=== PATIENT | male | born 1950 ===

== ENCOUNTER 2021-11-21 09:24 | Day surgery (SDC) | payer MEDICARE ==
[2021-11-21] VITALS (11 sets, daily range): BP systolic 102–167; BP diastolic 68–88; PULSE 61–87; TEMP 96.5–98.2
[~2021-11-21] VITALS: Wt 110.5 kg
[2021-11-21] MEDS ORDERED: PRINIVIL10 MG PO (10:35)
[2021-11-21] MEDS ORDERED: NORVASC 10MG10 MG PO (10:35)
[2021-11-21] MEDS ORDERED: PYRIDIUM 100MG100 MG PO (12:06)
--- NOTE | 2021-11-21 15:07 | NUR ---
PT ARRIVED TO ROOM 330 AT 1500. VSS, RATING PAIN 3/10. DENIES NAUSEA. CBI RUNNING WITH CLEAR, LIGHT PINK OUTPUT IN BECKMAN CATHETER. PT DENIES FURTHER NEEDS WITH CALL LIGHT IN REACH.
--- NOTE | 2021-11-21 20:45 | NUR ---
Pt. sitting up in bed. Pt. is a&OX3, assessment complete. INT to lt. ac patent. Pt. denies pain. Duran catheter to DD with CBI running slow, urine is light pink at this time. Pt. denies further needs.
[2021-11-22 03:39] VITALS: BP 126/81; PULSE 66; TEMP 97.6
[2021-11-22 07:30] VITALS: BP 134/71; PULSE 71; TEMP 97.6
--- NOTE | 2021-11-22 07:30 | NUR ---
pt assessment completed. pt rossi intact w/o kinks draining light pink urine. CBI currently not infusing. pt tolerated breakfast well. no complaints of nausea. pt states no real current pain, just tender and sometimes a "shock feeling" and that he wants to urinate on his own. pt stated he jus wants to lay and bed as he tried to get up this morning and didn't tolerate well. pt is in good spirits resting in bed w/ call light in reach.
--- NOTE | 2021-11-22 09:30 | NUR ---
d/c pt rossi. drained bag that contained 600mL of light pink urine. filled bladder w/ NS solution until pt felt urge and uncomfortable. deflated balloon and removed 30mL. removed rossi w/ tip in tact. provided ida care. pt tolerated removel well. educated pt on drinking fluids to obtain 6 specimen cups to monitor color of urine. pt in bed resting w/ call light in reach
--- NOTE | 2021-11-22 09:50 | NUR ---
pt has had a intake of 4800mL of water. has urinated twice and provided urine specimen that are a duarte red and contain clots. No complaints of pain. states he has a urge to urinate w/ some feeling of a clot blocking his stream. Pt is well resting in bed with call light in reach.
--- NOTE | 2021-11-22 10:58 | NUR ---
First visit from the summer sessions director. No needs right now.
[2021-11-22 11:50] VITALS: BP 126/68; PULSE 75; TEMP 97.8
--- NOTE | 2021-11-22 15:22 | NUR ---
DISCHARGE INSTRUCTIONS REVIEWED WITH PT. PT LEFT UNIT AMBULATORY.
--- NOTE | 2021-11-22 15:23 | NUR ---
AGREE WITH STUDENTS ASSESSMENTS CHARTED.
== END 2021-11-22 15:23 | disposition home or self-care (01) ==
LOC: SDCO 09:24 → SURG 15:01 → SDCO 11-22 15:23
DX: N40.1 Benign prostatic hyperplasia with lower urinary tract symptoms (principal); R35.1 Nocturia; R39.12 Poor urinary stream; R39.14 Feeling of incomplete bladder emptying; F17.210 Nicotine dependence, cigarettes, uncomplicated; Z98.890 Other specified postprocedural states
CPT/HCPCS: OP; J0690; J1100; J2250; J2270; J2405; J2704; J3010; J3480; J7120

== ENCOUNTER → 2023-12-31 | Outpatient (CLI) | payer MEDICARE, MEDICAID ==
[~2023-12-31] VITALS: Ht 185.4 cm; Wt 94.3 kg
[~2023-12-31] MED LIST: NORCO 325 MG-51 TAB PO; NORVASC 10MG10 MG PO; PRINIVIL10 MG PO; PYRIDIUM 100MG100 MG PO
[2023-12-31 08:10] VITALS: BP 120/66; PULSE 77; TEMP 99.3
[2023-12-31 08:55] VITALS: BP 93/65; PULSE 74
== END ==
LOC: COL.RAD 07:30
DX: R93.5 Abnormal findings on diagnostic imaging of other abdominal regions, including retroperitoneum (principal)
CPT/HCPCS: 32108

== ENCOUNTER 2024-01-23 09:43 | Observation (INO) | payer MEDICARE, MEDICAID ==
[~2024-01-23] VITALS: Ht 188 cm; Wt 94.1 kg
[~2024-01-23 09:43] MED LIST changes: +FLEXERIL 1010 MG/TAB PO; +ZYLOPRIM 300MG300 MG PO
[2024-01-23] MEDS ORDERED: Ondansetron 4 MG/2 ML VIAL IV ONE (10:15)
[2024-01-23] MEDS ORDERED: HYDROmorphone 0.5 MG/0.5 ML SYRINGE IV ONE ×2 (10:15→12:30)
[2024-01-23] MEDS ORDERED: NS 1,000 ML IV ONE (10:15)
[2024-01-23 10:24] LABS: BASO % 0.3 % (0.0-2.0); EOS # 0.2 K/mm3 (0.0-0.7); EOS % 1.9 % (0.0-4.0); GRAN # 9.4 K/mm3 (1.4-6.5); GRAN % 79.5 % (42.2-75.2); HEMATOCRIT 37.9 % (42.0-52.0); HEMOGLOBIN 12.4 g/dl (13.5-18.0); LYMPH # 1.1 K/mm3 (1.2-3.4); LYMPH % 9.4 % (20.0-51.0); MEAN CELL VOLUME 88 fl (80.0-100.0); MEAN CORPUSCULAR HEMOGLOBIN 29 pg (27-31); MEAN CORPUSCULAR HGB CONC 33 g/dl (33.0-37.0); MEAN PLATELET VOLUME 9.4 fl (7.4-10.4); MONO % 8.2 % (1.7-9.3); PLATELET COUNT 218 K/mm3 (130-400); RED BLOOD COUNT 4.32 M/mm3 (4.20-5.60); REDCELL DISTRIBUTION WIDTH-CV 14.6 % (11.5-14.5)
[2024-01-23 10:59] LABS: ALBUMIN 2.8 g/dL (3.4-4.8); C-REACTIVE PROTEIN 12.82 mg/dL (0.00-0.50); CALCIUM 9.4 mg/dL (8.4-10.2); CREATININE, serum 0.92 mg/dL (0.72-1.25); POTASSIUM 3.8 mEq/L (3.5-4.5); TOTAL PROTEIN 6.7 g/dl (6.2-8.1)
[2024-01-23] MEDS ORDERED: Iohexol 300 - 100 ML VIAL IV ONE (11:32)
[2024-01-23] MEDS ORDERED: NS 100 ML IV SCH (11:33)
[2024-01-23] MEDS ORDERED: ROXICODONE 55 MG/TAB PO (12:39)
--- NOTE | 2024-01-23 13:25 | NUR ---
Pt arrived to surgical floor from ED. Report received from JERSON Sawyer. Admission assessment and intake completed. Pt is A&O x4. Orieneted pt to room, call light, and bathroom. INT to Rt wrist patent with no swelling, redness, or drainage. Home medications reviewed. Pt reports pain in his lower back that radiates to the front of his abdomen. Pt ambulates independently with no complications. During admission intake this nurse received a phone call from telemetry monitoring from [facility] stating that patient telemetry was showing afib. This nurse assessed pt and pt was asymptomatic of afib. This nurse then notified Dr. Benson by phone and obtained orders for EKG and cardiology consult. This nurse consulted cardiology and notified respiratory for EKG order. EKG obtained and cardiology Angeli ARTHUR called this nurse and notified this nurse that patient was in normal sinus rhythm with PAC. Pt is currently resting in bed with no complaints. PRN Tylenol adminsitered per emar for back pain and NS infusing into Rt wrist with no complications. Call light within reach.
[2024-01-23] MEDS ORDERED: Acetaminophen 325 MG TAB PO PRN ×2 (13:45→17:30)
[2024-01-23] MEDS ORDERED: *Potassium Replacement Protocol MC SCH (13:45)
[2024-01-23] MEDS ORDERED: Ondansetron 4 MG/2 ML VIAL IV PRN ×2 (13:45→17:30)
[2024-01-23 14:00] VITALS: BP 118/63; PULSE 61; TEMP 98.2
[2024-01-23] MEDS ORDERED: NS 1,000 ML IV SCH (14:00)
[2024-01-23 16:59] VITALS: BP_SYST 118
[2024-01-23] MEDS ORDERED: Allopurinol 300 MG TAB PO SCH (17:06)
[2024-01-23] MEDS ORDERED: Lisinopril 10 MG TAB PO SCH (17:06)
[2024-01-23] MEDS ORDERED: oxyCODONE 5 MG TAB PO PRN (17:15)
[2024-01-23] MEDS ORDERED: Cyclobenzaprine 10 MG TAB PO PRN (17:15)
[2024-01-23 20:01] VITALS: BP 128/65; PULSE 62; TEMP 98
[2024-01-23 21:00] VITALS: BP_SYST 128
[2024-01-23 23:57] VITALS: BP 105/63; PULSE 58; TEMP 98.1
[2024-01-24] VITALS (8 sets, daily range): BP systolic 105–113; BP diastolic 60–64; PULSE 60–69; TEMP 98.1–98.4
--- NOTE | 2024-01-24 02:46 | NUR ---
NURSING SHIFT ASSESSMENT COMPLETED. THE PATIENT IS ALERT AND ORIENTED AND AMBULATES WITH A STEADY GAIT. PAIN MEDICATIONS REVIEWED. THE PATIENT IS REPORTING ABD PAIN THAT RADIATES TO HIS BACK AND IS MUCH WORSE WITH MOVEMENTS. THE PATIENT WAS ENCOURAGED TO TAKE THE PAIN MEDICATION MORE OFTEN RATHER THAN PUTTING IT OFF UNTIL THE PAIN BECOMES INBEARABLE. THE PATIENT VERBALIZED UNDERSTANDING. THE PATIENT DENIED OTHER NEEDS AT THIS TIME. CALL LIGHT AND PERSONAL BELONGINGS WITHIN REACH. THE BED IS IN THE LOW POSITION.
[2024-01-24 07:47] LABS: BASO % 0.3 % (0.0-2.0); EOS # 0.5 K/mm3 (0.0-0.7); EOS % 4.9 % (0.0-4.0); GRAN # 6.8 K/mm3 (1.4-6.5); GRAN % 71.4 % (42.2-75.2); LYMPH # 1.3 K/mm3 (1.2-3.4); MEAN CELL VOLUME 90 fl (80.0-100.0); MEAN CORPUSCULAR HGB CONC 32 g/dl (33.0-37.0); MEAN PLATELET VOLUME 10.3 fl (7.4-10.4); MONO # 0.9 K/mm3 (0.1-0.6); PLATELET COUNT 183 K/mm3 (130-400); RED BLOOD COUNT 3.62 M/mm3 (4.20-5.60); REDCELL DISTRIBUTION WIDTH-CV 14.6 % (11.5-14.5)
[2024-01-24 07:48] LABS: HEMATOCRIT 32.5 % (42.0-52.0); HEMOGLOBIN 10.4 g/dl (13.5-18.0); MEAN CORPUSCULAR HEMOGLOBIN 29 pg (27-31)
[2024-01-24 08:12] LABS: ALBUMIN 2.2 g/dL (3.4-4.8); CALCIUM 8.6 mg/dL (8.4-10.2); CREATININE, serum 0.75 mg/dL (0.72-1.25); PHOSPHOROUS 2.8 mg/dL (2.3-4.7); POTASSIUM 3.6 mEq/L (3.5-4.5)
--- NOTE | 2024-01-24 08:45 | NUR ---
Pt. sitting up in bed. Pt. is A&Ox3, assessment complete. IV to rt. hand patent, IV fluids infusing per orders. Pt. reported pain to the abd. at a 7 on pain scale and was given a pain pill per orders. Pt. reports at this time pain has imporved. Consent signed for port placement. Pt. deneis further needs, call light within reach.
[2024-01-24] MEDS ORDERED: amLODIPine 10 MG TAB PO SCH (09:00)
[2024-01-24] MEDS ORDERED: fentaNYL 50 MCG/ML 1 ML SYRINGE/VIAL [PACU/SDC ONLY] IV PRN (09:15)
[2024-01-24] MEDS ORDERED: Ondansetron 4 MG/2 ML VIAL IV PRN (09:15)
[2024-01-24] MEDS ORDERED: HYDROmorphone 1 MG/1 ML SYRINGE [PACU/SDC ONLY] IV PRN (09:15)
[2024-01-24] MEDS ORDERED: dexAMETHasone 4 MG/ML VIAL IV ONE (09:30)
--- NOTE | 2024-01-24 09:40 | NUR ---
cellar worker met with pt to discuss discharge planning. Pt reports to live alone in [place]. He states his contact is his friend, Eulalio [phone]. He sees Dr. Landeros and obtains medications from [facility] with no difficulties. He reports to be independent with ADLS and uses no DME. He does not have a DPOA-HC and declined one. Pt has a living brother and [id number] in [place]. He stated he wants to "leave it the way it is." SW advised PT saw him and reccomended a cane for him. Pt was agreeable to this and was okay with [facility] ordering it. SW emailed the cane DME order to [facility]. Discharge Plan: home
--- NOTE | 2024-01-24 10:00 | NUR ---
Pt. to OR at this time.
[2024-01-24] MEDS ORDERED: Lidocaine PF 2% (20 MG/ML) 5 ML VIAL ONE (10:03)
[2024-01-24] MEDS ORDERED: fentaNYL 50 MCG/ML 2 ML VIAL ONE (10:21)
[2024-01-24] MEDS ORDERED: Glycopyrrolate 0.2 MG/ML 1 ML VIAL ONE (10:21)
[2024-01-24] MEDS ORDERED: Ondansetron 4 MG/2 ML VIAL ONE (10:47)
--- NOTE | 2024-01-24 12:02 | NUR ---
Pt. to the floor from PACU. Pt. remains A&OX3, Dressing to rt. chest CDI. Pt. denies pain or other needs. Re-assessment WNL, Vital stable.
[2024-01-24] MEDS ORDERED: ZOFRAN 4MG T4 MG/TAB PO (14:08)
[2024-01-24] MEDS ORDERED: ADVIL LIQUI-GE200 MG PO (14:08)
[2024-01-24] MEDS ORDERED: PREDNISONE50 MG PO (14:09)
[2024-01-24] MEDS ORDERED: ROXICODONE 55 MG/TAB PO (14:09)
--- NOTE | 2024-01-24 14:52 | NUR ---
Pt. remains stable post op. Pt. has met discharge criteria. Dressing to rt. chest CDI. Will proceed with discharge.
--- NOTE | 2024-01-24 15:10 | NUR ---
Pt. is dressed and ready for discharge. INT discontinued from rt. wrist. Reviewed and gave discharge paperwork to the pt. Pt. voices understanding. Pt. escorted out by this nurse.
== END 2024-01-24 15:15 | disposition home or self-care (01) ==
LOC: COL.ER 09:43 → SURG 12:32
PROVIDERS: Emergency Medicine; ADMIT Internal Medicine
DX: C83.38 Diffuse large B-cell lymphoma, lymph nodes of multiple sites (principal); I10 Essential (primary) hypertension; M10.9 Gout, unspecified; F17.210 Nicotine dependence, cigarettes, uncomplicated; Z79.899 Other long term (current) drug therapy
CPT/HCPCS: C1788; G0378; J0780; J1170; J1644; J2405; J2704; J3010; J7030; Q9967